=== PATIENT | male | born 1995 | race Caucasian/White ===

== ENCOUNTER 2016-09-02 15:03 | Emergency (ER) | payer OTHER ==
[2016-09-02 15:12] VITALS: BP 189/74; PULSE 63; TEMP 98.2; BMI 35.9
[2016-09-02] MEDS ORDERED: AMOX TR/POT CLAV 875MG/125MG TABLETS (FP) PO ONE (15:55)
[2016-09-02] MEDS ORDERED: KETOROLAC TROMETHAMINE 60 MG/2 ML VIAL IM ONE (15:58)
[2016-09-02] MEDS ORDERED: AMOX TR/POT CLAV 875MG/125MG TABLETS (FP) ONE (15:59)
--- NOTE | 2016-09-02 16:01 | PDOC ---
History of Present Illness - General Chief Complaint: Toothache Stated Complaint: TOOTHACHE Time Seen by Provider: 09/02/16 15:40 History Source: Patient Exam Limitations: No Limitations - History of Present Illness Initial Comments: 09/02/16 16:02 States tooth broke approximately one month ago, has had intermittent swelling to his face, and now with inflammation and runny notes to his nose. States fever has been intermittent, but drainage from his nose is not purulent. States did not have insurance until September 11 which is what caused him not to seek ev\ evaluation Timing/Duration: unsure Modifying Factors: improves with: cold therapy Associated Symptoms: reports: denies symptoms, headaches. denies: fever/chills Past History - Travel Traveled outside of the country in the last 30 days: No Close contact w/someone who was outside of country & ill: No - Past Medical History Allergies/Adverse Reactions: Allergies Allergy/AdvReac Type Severity Reaction Status Date / Time No Known Allergies Allergy Verified 09/02/16 15:12 Home Medications: Ambulatory Orders Amox-Tr/K Cl [Augmentin 875Mg Tablet] 1 tab PO BID #14 tablet 09/02/16 Ibuprofen [Advil -] 400 mg PO QID 09/02/16 - Psycho/Social/Smoking Cessation Hx Anxiety: No Suicidal Ideation: No Smoking History: Current every day smoker Number of Cigarettes Smoked Daily: 3 Information on smoking cessation initiated: No 'Breaking Loose' booklet given: 01/25/14 Hx Alcohol Use: No Review of Systems - Review of Systems Able to Perform ROS?: Yes Is the patient limited Luxem[place]ish proficient: Yes Constitutional: Yes: Symptoms Reported, See HPI, Malaise. No: Fever HEENTM: Yes: See HPI, Nose Congestion, Mouth Pain, Dental Problems. No: Symptoms Reported Respiratory: Yes: See HPI, Cough. No: Wheezing Integumentary: No: Symptoms Reported Neurological: Yes: Symptoms reported, See HPI, Headache All Other Systems: Reviewed and Negative *Physical Exam - Vital Signs Last Vital Signs Temp Pulse Resp BP Pulse Ox 98.2 F 63 18 189/74 98 09/02/16 15:08 09/02/16 15:08 09/02/16 15:08 09/02/16 15:08 09/02/16 15:08 - Physical Exam General Appearance: Yes: Nourished, Appropriately Dressed, Apparent Distress HEENT: positive: CHUY, TMs Normal, Pharynx Normal, Other (ling and tenderness to upper left gingival surface, no obvious abscess or fluctuance noted. Tooth is eroded down.). negative: Normal ENT Inspection Neck: positive: Lymphadenopathy (R), Lymphadenopathy (L). negative: Tender Respiratory/Chest: positive: Lungs Clear Cardiovascular: negative: Regular Rhythm Extremity: positive: Normal Inspection, Normal Range of Motion Integumentary: positive: Normal Color, Pale Neurologic: positive: script reader II-XII NML intact, Fully Oriented, Alert, Normal Mood/ Affect, Normal Response, Motor Strength 06/15 Medical Decision Making - Medical Decision Making 09/02/16 16:01 Abscess, will treat with Augmentin, Toradol and NSAIDs, and referred immediately to dental clinic for extraction or further evaluation. *DC/Admit/Observation/Transfer Diagnosis at time of Disposition: Dental caries - Discharge Dispostion Disposition: HOME Condition at time of disposition: Stable Admit: No - Patient Instructions Printed Discharge Instructions: DI for Dental Pain Additional Instructions: Rest, drink lots of fluids: Teas, water, soups Saltwater gargles/ keep mouth clean and rinse after each meal May use wet teabag for pain relief to area Avoid hard chewing foods, stick to ice cream, Jell-O, yogurt etc. Tylenol or Motrin for fever and pain Complete all medication as prescribed Seek dental appointment as soon as possible for evaluation of dental injury/pain Followup with private physician in one to 2 days as needed Return to emergency department for worsened symptoms, fevers, swelling to face or worsened pain - Post Discharge Activity Work/School Note: Back to Work
[2016-09-02] MEDS ORDERED: KETOROLAC TROMETHAMINE 60 MG/2 ML VIAL ONE (16:02)
== END 2016-09-02 16:12 | disposition home or self-care (01) ==
LOC: JERFT 15:03
PROC: 3E0233Z Introduction of Anti-inflammatory into Muscle, Percutaneous Approach (ICD-10-PCS; principal; 2016-09-02)
DX: K02.9 Dental caries, unspecified (principal)
CPT/HCPCS: 99281-25

== ENCOUNTER 2017-01-17 01:07 | Emergency (ER) | payer OTHER ==
[2017-01-17 01:53] VITALS: BP 146/87; PULSE 80; TEMP 98.6; BMI 40.3
--- NOTE | 2017-01-17 01:58 | PDOC ---
History of Present Illness - General History Source: Patient <Markus Yee - Last Filed: 01/17/17 02:00> - General Exam Limitations: No Limitations - History of Present Illness Initial Comments: 01/17/17 02:11 21 year old male with no PMHx, who presents to the emergency room complaining of 2 days of dental pain. The patient explains that he started developing dental pain to tooth #30 over the past 2 days. However, he reports ongoing dental pain over the past several months. The patient notes that he was seen in the ED in August of 2016 when he was treated and released for dental caries and an abscess of tooth #14. Denies fever, chills, nausea, vomiting. Denies difficulty eating. Denies difficulty swallowing. <Alena Chaparro - Last Filed: 01/17/17 02:12> - General Chief Complaint: Toothache Stated Complaint: TOOTHACHE Time Seen by Provider: 01/17/17 01:55 Past History - Suicide/Smoking/Psychosocial Hx Smoking History: Never smoked Have you smoked in the past 12 months: No Number of Cigarettes Smoked Daily: 3 Information on smoking cessation initiated: No 'Breaking Loose' booklet given: 01/25/14 Hx Alcohol Use: No Drug/Substance Use Hx: No <Markus Yee - Last Filed: 01/17/17 02:00> <Alena Chaparro - Last Filed: 01/17/17 02:12> - Past Medical History Allergies/Adverse Reactions: Allergies Allergy/AdvReac Type Severity Reaction Status Date / Time No Known Allergies Allergy Verified 01/17/17 01:52 Home Medications: Ambulatory Orders Ibuprofen [Advil -] 400 mg PO QID 09/02/16 Amox-Tr/K Cl [Augmentin 875Mg Tablet] 1 tab PO BID #20 tablet 01/17/17 Ibuprofen 800 mg PO TID #30 tablet 01/17/17 Review of Systems - Review of Systems Able to Perform ROS?: Yes Comments:: 01/17/17 02:11 CONSTITUTIONAL: Absent: fever, no chills, no fatigue EYES: Absent: visual changes ENT: Present: dental pain Absent: ear pain, no sore throat CARDIOVASCULAR: Absent: chest pain, no palpitations RESPIRATORY: Absent: cough, no SOB GI: Absent: abdominal pain, no nausea, no vomiting, no constipation, no diarrhea GENITOURINARY: Absent: dysuria, no frequency, no hematuria MUSCULOSKELETAL: Absent: back pain, no arthralgia, no myalgia SKIN: Absent: rash <Alena Chaparro - Last Filed: 01/17/17 02:12> *Physical Exam - Vital Signs Last Vital Signs Temp Pulse Resp BP Pulse Ox 98.6 F 80 20 146/87 98 01/17/17 01:52 01/17/17 01:52 01/17/17 01:52 01/17/17 01:52 01/17/17 01:52 <Markus Yee - Last Filed: 01/17/17 02:00> - Vital Signs Last Vital Signs Temp Pulse Resp BP Pulse Ox 98.6 F 80 20 146/87 98 01/17/17 01:52 01/17/17 01:52 01/17/17 01:52 01/17/17 01:52 01/17/17 01:52 - Physical Exam Comments: 01/17/17 02:12 GENERAL: Well-appearing, well-nourished. No apparent distress. HEENT: Normocephalic, atraumatic. PERRL, EOM intact. DENTAL: +Broken tooth #15 with no surrounding erythema of the gum. However, there is erythema of the gum surrounding tooth #30. Appears to have caries. CARDIOVASCULAR: Normal S1, S2. Regular rate and rhythm. PULMONARY: Clear to auscultation bilaterally. EXTREMITIES: Normal ROM in all four extremities. No gross deformities. SKIN: Warm, dry. No rash NEUROLOGICAL: No focal neurological deficits. <Alena Chaparro - Last Filed: 01/17/17 02:12> ED Treatment Course - Medications Given in the ED: ED Medications Discontinued Medications Generic Name Dose Route Start Last Admin Trade Name Freq PRN Reason Stop Dose Admin Amoxicillin/Clavulanate Potassium 1 tab 01/17/17 01:59 01/17/17 02:06 Augmentin - 875mg Tablet PO 01/17/17 02:00 1 tab ONCE STA Administration Ibuprofen 800 mg 01/17/17 01:59 01/17/17 02:06 Motrin - PO 01/17/17 02:00 800 mg ONCE ONE Administration <Alena Chaparro - Last Filed: 01/17/17 02:12> Medical Decision Making - Medical Decision Making 01/17/17 02:01 Dr. Yee: The scribe's documentation has been prepared under my direction and personally reviewed by me in its entirery. I confirm that the note above accurately reflects all work, treatment, procedures, and medical decision making performed by me. <Markus Yee - Last Filed: 01/17/17 02:00> *DC/Admit/Observation/Transfer - Discharge Dispostion Admit: No <Markus Yee - Last Filed: 01/17/17 02:00> - Attestations Scribe Attestion: 01/17/17 02:12 Documentation prepared by KHOI Radford, acting as medical records library professor for Markus Yee MD. <Alena Chaparro - Last Filed: 01/17/17 02:12> Diagnosis at time of Disposition: Dental caries - Discharge Dispostion Disposition: HOME Condition at time of disposition: Stable - Prescriptions Prescriptions: Amox-Tr/K Cl [Augmentin 875Mg Tablet] 1 tab PO BID #20 tablet Ibuprofen 800 mg PO TID #30 tablet - Referrals Referrals: STAFF,NOT ON [Primary Care Provider] - - Patient Instructions Printed Discharge Instructions: DI for Tooth Decay, DI for Dental Pain Additional Instructions: Please follow up with a dentist as soon as possible. TAke medication as directed. - Post Discharge Activity
[2017-01-17] MEDS ORDERED: IBUPROFEN 400 MG TABLET (FP) PO ONE ×2 (01:59→02:05)
[2017-01-17] MEDS ORDERED: AMOX TR/POT CLAV 875MG/125MG TABLETS (FP) PO STA (01:59)
[2017-01-17] MEDS ORDERED: AMOX TR/POT CLAV 875MG/125MG TABLETS (FP) ONE (02:05)
== END 2017-01-17 02:11 | disposition home or self-care (01) ==
LOC: JER 01:07
DX: K02.9 Dental caries, unspecified (principal)
CPT/HCPCS: 99282-25